=== PATIENT | male | born 1995 | race Caucasian/White ===

== ENCOUNTER 2020-02-01 09:35 | Emergency (ER) | payer OTHER ==
[~2020-02-01] VITALS: Ht 172.7 cm; Wt 131.5 kg
[~2020-02-01 09:35] MED LIST: AUGMENTIN 875-1 EACH PO; TRAMADOL 50 MG50 MG PO
[2020-02-01] MEDS ORDERED: NOHOMEMEDICATIONS (09:55)
[2020-02-01] MEDS ORDERED: PREDNISONE 20 M20 MG PO (11:25)
[2020-02-01] MEDS ORDERED: KEFLEX500 M1 PO (11:25)
[2020-02-01 11:27] VITALS: BP 165/89
== END 2020-02-01 11:27 | disposition home or self-care (01) ==
LOC: ER 09:35
DX: L25.9 Unspecified contact dermatitis, unspecified cause (principal); L03.116 Cellulitis of left lower limb; L03.115 Cellulitis of right lower limb; R60.0 Localized edema; L08.9 Local infection of the skin and subcutaneous tissue, unspecified